=== PATIENT | female | born 1970 | race African-American/Black ===

== ENCOUNTER 2018-12-05 12:40 | Emergency (ER) | payer BC ==
[~2018-12-05] VITALS: Ht 170.2 cm; Wt 80.9 kg
[2018-12-05 12:43] VITALS: Ht 170.2 cm; Wt 80.9 kg
[2018-12-05] MEDS ORDERED: IBUPROFEN800 MG PO (13:55)
[2018-12-05] MEDS ORDERED: TYLENOL W/CODEI1 TAB PO (13:55)
[2018-12-05 14:10] VITALS: BP 153/86
== END 2018-12-05 14:20 | disposition home or self-care (01) ==
LOC: D.ER 12:40
DX: M25.511 Pain in right shoulder (principal); R03.0 Elevated blood-pressure reading, without diagnosis of hypertension